=== PATIENT | male | born 1995 | race African-American/Black ===

== ENCOUNTER 2020-12-21 17:38 | Emergency (ER) | payer OTHER ==
[~2020-12-21] VITALS: Ht 177.8 cm; Wt 70.3 kg
[2020-12-21 18:10] LABS: ABSOLUTE NEUTROPHILS 10.9 thou/uL (1.4-8.2); BASOPHILS 0.9 % (0.0-2.0); EOSINOPHILS 0.9 % (0.0-3.0); HEMATOCRIT 44.2 % (42.0-52.0); HEMOGLOBIN 14.7 gm/dL (14.0-18.0); LYMPHOCYTES 9.1 % (24.0-44.0); MCH 28.1 pg (26.0-34.0); MCHC 33.3 g/dL (28.0-37.0); MCV 84.5 fL (80.0-100.0); PLATELET COUNT 353 thou/uL (150-400); POLYS 84.1 % (36.0-66.0); RBC 5.23 mil/uL (4.50-6.00); RDW 13.4 % (10.5-14.5)
[2020-12-21 18:18] LABS: CALCIUM 9.4 mg/dL (8.5-10.1); CREATININE 1.1 mg/dL (0.7-1.3); POTASSIUM 3.8 mmol/L (3.5-5.1)
[2020-12-21 18:24] LABS: ALBUMIN 3.5 g/dL (3.4-5.0); DIRECT BILIRUBIN 0.4 mg/dL (<0.1-0.2); TOTAL BILIRUBIN 1.7 mg/dL (0.2-1.0); TOTAL PROTEIN 8.8 g/dL (6.4-8.2)
[2020-12-21] MEDS ORDERED: ONDANSETRON HCL4 M2 PO (19:08)
[2020-12-21 20:17] VITALS: BP 137/83
== END 2020-12-21 20:20 | disposition home or self-care (01) ==
LOC: ER 17:38
PROVIDERS: Nurse Practitioner
DX: R11.2 Nausea with vomiting, unspecified (principal); R53.83 Other fatigue